=== PATIENT | male | born 1995 | race Two or more races ===

== ENCOUNTER 2022-04-28 02:09 | Emergency (ER) | payer MEDICAID, OTHER ==
[~2022-04-28] VITALS: Ht 170.2 cm; Wt 68.0 kg
[2022-04-28 02:39] VITALS: BP 116/67
[2022-04-28] MEDS ORDERED: AMOX-277 PO (03:46)
== END 2022-04-28 03:56 | disposition home or self-care (01) ==
LOC: ER 02:09
DX: K08.89 Other specified disorders of teeth and supporting structures (principal); Z79.2 Long term (current) use of antibiotics

== ENCOUNTER 2023-08-06 14:46 | Emergency (ER) | payer MEDICAID, OTHER ==
[~2023-08-06] VITALS: Ht 170.2 cm; Wt 66.0 kg
[~2023-08-06 14:46] MED LIST: AMOX875T4 PO
[2023-08-06] MEDS ORDERED: ACETAMINOPHEN 325 MG TAB PO ONE (15:15)
[2023-08-06] MEDS ORDERED: IBUPROFEN 600 MG TAB PO ONE (15:15)
[2023-08-06 15:36] VITALS: BP 124/86; PULSE 124; RESP 16; O2SAT 95
[2023-08-06] MEDS ORDERED: cefTRIAXone SOD 1,000 MG VL IM ONE (15:45)
[2023-08-06 16:32] LABS: Rapid Influenza A Negative (Negative); Rapid Influenza B Negative (Negative)
[2023-08-06 16:33] LABS: COVID19 ANTIGEN SOFIA FIA POSITIVE (NEGATIVE)
[2023-08-06] MEDS ORDERED: AZIT500T66 PO (16:44)
[2023-08-06] MEDS ORDERED: ACET-1080 PO (16:44)
[2023-08-06 16:47] VITALS: TEMP 98.8
== END 2023-08-06 16:49 | disposition home or self-care (01) ==
LOC: ER 14:46
DX: U07.1 COVID-19 (principal); J03.90 Acute tonsillitis, unspecified
CPT/HCPCS: 36415; 71045; 87426; 87804; 96372; 99284; J0696